=== PATIENT | male | born 1970 | race Caucasian/White ===

== ENCOUNTER 2019-01-12 22:00 | Emergency (ER) | payer SELFPAY ==
--- NOTE | 2019-01-12 22:04 | ED Physician Documentation ---
General Adult - HISTORIAN Historian: patient - HPI Stated Complaint: high blood pressure Chief Complaint: General Adult Onset: other (he has had hypertension for years ) Timing: still present Severity: mild Further Comments: yes (He states 6 weeks ago he had Norvasc added to his med list. He feels this has helped his b/p "none" he has no chest pain states he had some "pressure in his head" and he checked his b/p at home and it was high. He has no other complaints) Last known Well Code/Unknown Code: Unknown - ROS CONST: no problems EYES/ENT: none CVS/RESP: none GI/: none MS/SKIN/LYMPH: none NEURO/PSYCH: denies: headache - PAST HX Past History: hypertension Allergies/Adverse Reactions: Allergies Allergy/AdvReac Type Severity Reaction Status Date / Time Sulfa (Sulfonamide Allergy Verified 01/12/19 22:14 Antibiotics) Home Medications: Ambulatory Orders Medication Instructions Recorded Aspirin [Adult Aspirin Regimen] 1 tab PO DAILY 01/12/19 Lisinopril [Zestril] 1 tab PO DAILY 01/12/19 amLODIPine BESYLATE [Norvasc] 1 tab PO DAILY 01/12/19 - SOCIAL HX Smoking History: cigarettes Alcohol Use: none Drug Use: none - FAMILY HX Family History: No - REVIEWED ASSESSMENTS Nursing Assessment Reviewed: Yes Vitals Reviewed: Yes General Adult Physical Exam - PHYSICAL EXAM GENERAL APPEARANCE: no distress EENT: eye inspection normal, ENT inspection normal, no signs of dehydration NECK: normal inspection RESPIRATORY: no resp distress, chest non-tender, breath sounds normal CVS: reg rate & rhythm, heart sounds normal, equal pulses, no murmur ABDOMEN: soft, normal bowel sounds, no distension, non-tender BACK: normal inspection, no CVA tenderness SKIN: warm/dry, normal color EXTREMITIES: non-tender, normal range of motion NEURO: oriented X3 Discharge Clincal Impression: Hypertension Qualifiers: Hypertension type: essential hypertension Qualified Code(s): I10 - Essential (primary) hypertension Referrals: Primary Doctor,No [Primary Care Provider] - 2 Days Comments: 1. Take clonidine 0.1 mg daily if b/p is over 160 on top or 100 on bottom 2. Notify PCP in am of blood pressure 3. STOP SMOKING 4. Increase fluids 5. Return to ER for any concerns Condition: Stable Disposition: 01 HOME, SELF-CARE Decision to Admit: NO Date of Decison to Admit: 01/12/19 Decision Time: 22:50
[2019-01-12] MEDS: cloNIDine HCL 0.1 MG TABLET PO ONE (22:23)
[2019-01-12 22:58] VITALS: BP 128/95
== END 2019-01-12 22:55 | disposition home or self-care (01) ==
LOC: ED 22:00
DX: I10 Essential (primary) hypertension (principal)
CPT/HCPCS: 99282; 99283

== ENCOUNTER 2019-09-27 20:14 | Emergency (ER) | payer SELFPAY ==
[2019-09-27] MEDS ORDERED: ASPIRIN 81 MG CHEW TAB PO ONE (20:25)
--- NOTE | 2019-09-27 20:30 | ED Physician Documentation ---
Chest Pain - HISTORIAN Historian: patient - HPI Chief Complaint: Chest Pain Additional Information: 49 year old male presents with c/o left sided chest pain- as I talked to him he states that it may be from his neck (chronic neck pain)- so he thinks pain is from the left shoulder. He states that he was leaving the grocery store around 17:30 when the symptoms started. He feels that he thinks that he just has anxiety and it makes his symptoms worse; he has no complaints at this time and states that he is feeling better. Onset: hours Timing: resolved on arrival to ED Duration: gradual Last known Well Date: 09/27/19 Last Known Well Time: 17:30 Context: rest Severity: mild Quality: dull, aching Chest Pain Radiation: no radiation Chest Pain Signs/Symptoms: nausea. denies: vomiting, diaphoresis Worsened By: nothing Relieved By: nothing - ROS CONST: none MS/LYMPH: none GI/: none EYES/ENT: none SKIN/ENDO: none NEURO/PSYCH: none - PAST HX NH risk factors: hypertension DVT/PE Risk Factors: none TAD/AAA risk factors: none Neuro deficit: none GI disease: none Lung disease: none Surgeries/Procedures: none Immunizations: UTD Allergies/Adverse Reactions: Allergies Allergy/AdvReac Type Severity Reaction Status Date / Time Sulfa (Sulfonamide Allergy Verified 01/12/19 22:14 Antibiotics) Home Medications: Ambulatory Orders Medication Instructions Recorded Aspirin [Adult Aspirin Regimen] 1 tab PO DAILY 01/12/19 Lisinopril [Zestril] 1 tab PO DAILY 01/12/19 amLODIPine BESYLATE [Norvasc] 1 tab PO DAILY 01/12/19 - SOCIAL HX Smoking History: less than 1 pack/day Alcohol Use: none Drug Use: none - FAMILY HX Family HX: none - VITAL SIGNS Vital Signs: Vital Signs Temp Pulse Resp BP Pulse Ox 128/95 01/12/19 22:56 - REVIEWED ASSESSMENTS Nursing Assessment Reviewed: Yes Vitals Reviewed: Yes Progress - Progress Progress: 21:10 Discussed results of chest xray with patient; he states "I have had a cough and congestion about a week"; dad has pneumonia ED Results Lab/Radiology - Radiology Radiology Impressions: 2 views of the chest History: Chest pain Comparison: None available questionable small pleural effusion may present a of the hip Cardiac size upper limits of normal. Bibasilar atelectasis. No focal consolidation. Density noted along the right lateral chest wall is questionable for a small effusion. There is a 9 mm round calcific density at the right lung base. Multilevel thoracic spine degenerative changes are present Impression: 1. Bibasilar atelectasis. Possible small right pleural effusion. Rounded calcific density right lower lobe may represent a calcified granuloma. No comparison studies are available. Electronically signed on Sep 27, 2019 8:58:29 PM RETREAD BUILDER by: Mabel Longoria - Orders Orders: ED Orders Category Date Time Status Continuous EKG monitoring Q30M Care 09/27/19 20:25 Active Continuous Pulse Oximetry Q30M Care 09/27/19 20:[address] IV Lock 1T Care 09/27/19 20:25 Active CHEST 2VIEW [RAD] Stat Exams 09/27/19 Ordered CBC/PLATELET/DIFF Stat Lab 09/27/19 20:25 Ordered CKMB Stat Lab 09/27/19 20:25 Ordered CMP Stat Lab 09/27/19 20:25 Ordered CREATINE KINASE Stat Lab 09/27/19 20:25 Ordered TROPONIN I Stat Lab 09/27/19 20:25 Ordered Aspirin [Baldev] Med 09/27/19 20:25 Discontinued 324 mg PO NOW ONE EKG WITH COMPARISON Stat Ther 09/27/19 20:25 Ordered Chest Pain Physical Exam - EXAM General Appearance: no acute distress, alert EENT: eye inspection normal, ENT inspection normal, pharynx normal, no signs of dehydration, TRAMAINE Neck: nml inspection, no carotid bruit Respiratory: nml breath sounds CVS: reg. rate & rhythm, pulses equal Abdomen: soft, normal bowel sounds Skin: warm/dry, normal color Extremities: non-tender, normal range of motion Neuro: oriented X3, CN's nml as tested, motor nml, sensation nml, mood/affect nml, cognition normal Discharge Clincal Impression: Bilateral atelectasis, Respiratory tract congestion with cough Referrals: Primary Doctor,No [REFERRING] - 2 Days Additional Instructions: Take Antibiotic as directed (Zithromax 250mg daily for 4 days) Increase water intake > 64 oz Stop Smoking Follow up with PCP next week for re-evaluation Condition: Good Disposition: 01 HOME, SELF-CARE Decision to Admit: NO Decision Time: 21:15
--- NOTE | 2019-09-27 21:04 | Diagnostic Imaging Report ---
PATIENT MR#: [id number] PATIENT PATIENT NAME: KIANA BACK DATE OF : 1970 REFERRING PHYSICIAN: Nitza Landaverde EXAM DATE: 09/27/2019 ACCESSION NUMBER: [id number] EXAM DESCRIPTION: CHEST 2VIEW 2 views of the chest History: Chest pain Comparison: None available questionable small pleural effusion may present a of the hip Cardiac size upper limits of normal. Bibasilar atelectasis. No focal consolidation. Density noted adiel ng the right lateral chest wall is questionable for a small effusion. There is a 9 mm round calcific density at th e right lung base. Multilevel thoracic spine degenerative changes are present Impression: 1. Bibasilar atelectasis. Possible small right pleural effusion. Rounded calcific density right lower lobe may represent a calcified granuloma. No comparison studies are available. Read by: Dr. Mabel Longoria Transcribed by: Transcribed Date: Electronically signed by: Dr. Mabel Longoria Date signed: 09/27/2019 9:02:52 PM
[2019-09-27] MEDS ORDERED: AZITHROMYCIN 250 MG TABLET PO ONE (21:09)
[2019-09-27 21:55] VITALS: BP 141/89
[2019-09-28 07:32] LABS: BASOPHILS % 1.1 % (0.0-1.5); NEUTROPHILS # 7.8 # k/uL (1.4-7.7)
[2019-09-28 07:33] LABS: eGFR (Non-African) > 60
== END 2019-09-27 21:25 | disposition home or self-care (01) ==
LOC: ED 20:14 → EDSTATUS 20:17 → ED 21:25
DX: J98.11 Atelectasis (principal); J98.8 Other specified respiratory disorders; F17.210 Nicotine dependence, cigarettes, uncomplicated
CPT/HCPCS: 71046; 80053; 82550; 82553; 84484; 85025; 93005; 99283; S1016